=== PATIENT | male | born 1950 | race Caucasian/White ===

== ENCOUNTER 2023-11-01 08:00 | Outpatient (CLI) | payer MEDICARE, BC ==
--- NOTE | 2023-11-01 14:45 | XRAY Report ---
PROCEDURE: Knee 3V LT INDICATIONS: LEFT KNEE EFFUSION TECHNIQUE: 3 views of the knee(s) were acquired. COMPARISON: None. FINDINGS: Bones: There are mild to moderate degenerative changes, and patellar enthesopathy. No displaced fract ure or dislocation. Soft tissues: Moderate joint effusion. Vascular calcifications. IMPRESSION: Mild to moderate degenerative changes. Moderate joint effusion . If there is high concern for further derangement, consider MRI evaluation. Reviewed by: Sriram Gautam MD on 11/01/2023 2:44 PM PST Approved by: Sriram Gautam MD on 11/01/2023 2:44 PM PST Station ID: [id number]
== END 2023-11-01 23:59 | disposition home or self-care (01) ==
LOC: DI.S 08:00
PROVIDERS: ATTEND Emergency Medicine
DX: M25.462 Effusion, left knee (principal); M17.12 Unilateral primary osteoarthritis, left knee

== ENCOUNTER 2024-01-02 07:32 | Outpatient (CLI) | payer MEDICARE, BC ==
--- NOTE | 2024-01-02 12:09 | MRI Report ---
PROCEDURE: Knee LT WO INDICATIONS: CONTUSION L KNEE TECHNIQUE: Noncontrast sagittal PD fast spin echo and T2 fast spin echo with fat saturation, sagittal 3-D spoile d GE with fat saturation; coronal T1 spin echo and PD fast spin echo with fat saturation, and axial P D fast spin echo with fat saturation through the knee. COMPARISON: Left knee radiographs 11/01/2023 FINDINGS: Image quality: Excellent. Anterior cruciate ligament: Intact. Posterior cruciate ligament: There is intrasubstance degeneration and suspected partial tearing of t he distal posterior cruciate ligament with an adjacent 12 x 3 x 4 mm pericruciate cyst. Medial collateral ligament: Chronic partial tearing of the proximal medial collateral ligament is se en with small amount of intrasubstance fluid. Lateral collateral ligament: Intact. Medial meniscus: There is complex tearing of the medial meniscus involving the posterior horn and obed dy with superimposed degeneration. There appears to be a displaced flap of meniscal tissue located wi thin the medial femorotibial compartment joint space Lateral meniscus: There is complex tearing of the lateral meniscus with a radial component at the po sterior root attachment as well as intrasubstance degeneration and a horizontal oblique component at the meniscal body. Medial and lateral tendons: The semimembranosus tendon insertions appear intact. Visualized portion s of the pes anserinus tendons appear normal. The popliteus tendon appears intact. Iliotibial band appears normal. Anterior structures: The patellar tendon and the distal quadriceps tendon appear intact. Mildly alyssa enitally shallow trochlear groove is seen with mild lateral patellar subluxation. Mild scarring is se en in the infrapatellar fat pad. Bones: No acute trabecular bone injury or fracture. Medial femorotibial cartilage: Mild partial thickness cartilage thinning and irregularity throughout the weightbearing portion of the medial femorotibial compartment. Small marginal osteophytes are pre sent. Lateral femorotibial cartilage: Full-thickness cartilage loss is seen at the posterior weightbearing portion of the lateral tibial plateau and lateral femoral condyle with subchondral cystic changes an d subchondral edema as well as marginal osteophyte formation. Patellofemoral cartilage: Full-thickness cartilage fissuring is seen at the lateral patellar facet w ith subchondral cystic changes and edema. There is diffuse grade II to III chondromalacia in the mitchell llar compartment. Soft tissues: There is a large joint effusion with mild synovial hypertrophy. There is a trace medi al popliteal cyst. The musculature surrounding the knee is normal in bulk. IMPRESSION: 1.Suspected low-grade partial intrasubstance tearing of the distal posterior cruciate ligament superi mposed on chronic degeneration. 2.Remote prior grade 2 sprain of the proximal medial collateral ligament. 3.Complex tearing and degeneration of the medial meniscus with suspected centrally displaced meniscal flap in the medial femorotibial joint space. 4.Complex tearing of the lateral meniscus with a radial component at the posterior root attachment as well as horizontal oblique tearing at the meniscal body and diffuse meniscal degeneration. 5.Full-thickness cartilage loss in the posterior weightbearing portion of the lateral femorotibial co mpartment with subchondral cystic changes and subchondral edema. There is grade II to III chondromala ashlyn and full-thickness cartilage fissuring in the patellofemoral compartment as well as marked trabec ulation the medial compartment. 6.Large joint effusion with mild synovial hypertrophy. Reviewed by: Victor Hugo Benedict MD on 01/02/2024 12:08 PM PDT Approved by: Victor Hugo Benedict MD on 01/02/2024 12:08 PM PDT Station ID: [id number]
== END 2024-01-02 07:33 | disposition home or self-care (01) ==
LOC: DI 07:32
PROVIDERS: ATTEND Registered Nurse
DX: S83.232A Complex tear of medial meniscus, current injury, left knee, initial encounter (principal); S83.272A Complex tear of lateral meniscus, current injury, left knee, initial encounter; M23.362 Other meniscus derangements, other lateral meniscus, left knee; M94.262 Chondromalacia, left knee; M25.462 Effusion, left knee

== ENCOUNTER 2024-03-28 07:49 | Outpatient (CLI) | payer MEDICARE, BC ==
[2024-03-28 08:03] LABS: BASOPHILS # (AUTO) 0.1 10^3/uL (0.0-0.1); EOSINOPHILS # (AUTO) 0.2 10^3/uL (0.0-0.7); HCT - HEMATOCRIT 40.6 % (42.0-52.0); HGB - HEMOGLOBIN 13.8 g/dL (14.0-18.0); LYMPHOCYTES # (AUTO) 1.1 10^3/uL (1.5-3.5); LYMPHOCYTES % (AUTO) 21.1 %; MEAN CORPUSCULAR HEMOGLOBIN 32.2 pg (27.0-31.0); MEAN CORPUSCULAR VOLUME 94.9 fL (80.0-94.0); MEAN PLATELET VOLUME 9.2 fL (7.4-11.4); MONOCYTES # (AUTO) 0.4 10^3/uL (0.0-1.0); MONOCYTES % (AUTO) 7.6 %; NEUTROPHILS # (AUTO) 3.5 10^3/uL (1.5-6.6); NEUTROPHILS % (AUTO) 66.7 %; PLT - PLATELET COUNT 144 10^3/uL (130-450); RED BLOOD COUNT 4.28 10^6/uL (4.70-6.10); RED CELL DISTRIBUTION WIDTH 12.4 % (12.0-15.0); WHITE BLOOD COUNT 5.3 x10^3/uL (4.8-10.8)
[2024-03-28 08:24] LABS: ALBUMIN 4.6 g/dL (3.2-5.5); ALBUMIN/GLOBULIN RATIO 1.7 (1.0-2.2); ALKALINE PHOSPHATASE 68 IU/L (42-121); ALT ALANINE AMINOTRANSFERASE 18 IU/L (10-60); AST ASPARTATE AMINOTRANSFERASE 17 IU/L (10-42); BILIRUBIN,TOTAL 0.5 mg/dL (0.2-1.0); BUN - BLOOD UREA NITROGEN 21 mg/dL (6-20); CALCIUM 9.8 mg/dL (8.5-10.3); CARBON DIOXIDE - CO2 29 mmol/L (21-32); CHLORIDE 106 mmol/L (101-111); CHOL/HDL RATIO 3.3 (<5.0); CHOLESTEROL 111 mg/dL; CREATININE 1.2 mg/dL (0.6-1.3); GFR - MDRD 60 (>89); GLUCOSE 108 mg/dL (74-104); HDL CHOLESTEROL 34 mg/dL; LDL CHOLESTEROL,CALCULATED 48 mg/dL; LDL/HDL RATIO 1.4 (<3.6); SODIUM 140 mmol/L (135-145); TOTAL PROTEIN 7.3 g/dL (6.4-8.9); TRIGLYCERIDES 145 mg/dL; VLDL CHOLESTEROL 29 mg/dL
[2024-03-28 08:38] LABS: THYROID STIMULATING HORMONE 3.01 uIU/mL (0.34-5.60)
== END 2024-03-28 07:50 | disposition home or self-care (01) ==
LOC: LAB 07:49
PROVIDERS: ATTEND Registered Nurse
DX: Z13.228 Encounter for screening for other metabolic disorders (principal); Z12.5 Encounter for screening for malignant neoplasm of prostate; Z13.220 Encounter for screening for lipoid disorders; Z13.29 Encounter for screening for other suspected endocrine disorder; Z13.0 Encounter for screening for diseases of the blood and blood-forming organs and certain disorders involving the immune mechanism
CPT/HCPCS: 36415; 80053; 80061; 84443; 85025; G0103; 83721; 84153